=== PATIENT | male | born 1955 | race African-American/Black ===

== ENCOUNTER 2023-04-04 18:55 | Emergency (ER) | payer MEDICAID ==
[~2023-04-04] VITALS: Ht 172.7 cm; Wt 200.0 kg
[2023-04-04] MEDS ORDERED: MORPHINE SULFATE 4 MG/ML CPJ (NOT FOR IM USE) IV STA (19:33)
[2023-04-04] MEDS ORDERED: DEXAMETHASONE 10 MG/ML VIAL IV ONE (19:45)
[2023-04-04 20:33] LABS: BASOPHILS % 1.3 % (0.0-2.0); EOSINOPHILS % 13.5 % (0.0-5.0); HEMATOCRIT. 36.4 % (42.0-52.0); HEMOGLOBIN. 12.2 g/dL (14.0-18.0); LYMPHOCYTES % 28.4 % (20.0-50.0); MEAN CORPUSCULAR HEMOGLOBIN 27.3 pg (28.0-32.0); MEAN CORPUSCULAR HGB CONC 33.5 g/dL (31.0-37.0); MEAN CORPUSCULAR VOLUME 81.4 fL (80.0-94.0); MEAN PLATELET VOLUME 7.2 fl (7.4-10.4); MONOCYTES % 14.4 % (2.0-8.0); NEUTROPHILS % 42.4 % (40.0-76.0); PLATELET 352 x1000/uL (130-400); RED BLOOD CELL COUNT 4.47 mill/uL (4.7-6.1); RED CELL DISTRIBUTION WIDTH 17.6 % (11.6-14.6); WHITE BLOOD COUNT 4.1 x1000/uL (4.5-11.0)
[2023-04-04 20:37] LABS: CHLORIDE 107 mEq/L (98-107); INDEX HEMOLYSI 1 (1-3); INDEX ICTERIC 1 (1-4); INDEX LIPEMIC 1 (1-3); POTASSIUM 3.7 mEq/L (3.5-5.1); SODIUM 141 mEq/L (136-145)
[2023-04-04 20:45] LABS: ALANINE AMINOTRANSFERASE 15 IU/L (13-61); ALBUMIN 2.6 g/dL (3.4-5.0); ASPARTATE AMINOTRANSFERASE 12 IU/L (15-37); BILIRUBIN TOTAL 0.2 mg/dL (0.1-1.0); CALCIUM 8.6 mg/dL (8.5-10.1); CARBON DIOXIDE 28 mEq/L (21-32); CREATININE 0.8 mg/dL (0.6-1.3); GLUCOSE 98 mg/dL (70-105); PROTEIN TOTAL 7.6 g/dL (6.0-8.3); UREA NITROGEN BLOOD 18 mg/dL (7-21)
[2023-04-04 21:14] VITALS: O2SAT 99
[2023-04-04] MEDS ORDERED: GADOTERATE MEGLUMINE 5 MMOL/10 ML VIAL IV ONE (21:54)
[2023-04-04] MEDS ORDERED: MORPHINE SULFATE 4 MG/ML CPJ (NOT FOR IM USE) IV NR (23:45)
[2023-04-05] MEDS ORDERED: MORPHINE SULFATE 4 MG/ML CPJ (NOT FOR IM USE) IV ONE (06:45)
[2023-04-05 09:22] VITALS: TEMP 98.2
[2023-04-05] MEDS ORDERED: HYDROMORPHONE HCL/PF 2MG/ML CPJ IV ONE (10:00)
[2023-04-05] MEDS ORDERED: DEXT 5%/LACTATED RINGERS 1,000 ML IV SCH (10:15)
[2023-04-05 10:19] VITALS: BP 149/86; PULSE 94; RESP 26
[2023-04-05] MEDS ORDERED: DEXAMETHASONE 4MG/ML 1ML VIAL IV SCH (12:00)
== END 2023-04-05 12:24 | disposition left against medical advice (07) ==
LOC: ER 18:55 → SUPCPDRO 22:00 → CANBEDREQ 22:56 → ER 04-05 12:24
DX: S09.90XA Unspecified injury of head, initial encounter (principal); G83.9 Paralytic syndrome, unspecified; M06.9 Rheumatoid arthritis, unspecified; M54.2 Cervicalgia; J45.909 Unspecified asthma, uncomplicated; I10 Essential (primary) hypertension; Z86.73 Personal history of transient ischemic attack (TIA), and cerebral infarction without residual deficits; W18.39XA Other fall on same level, initial encounter; Y93.89 Activity, other specified; Y92.89 Other specified places as the place of occurrence of the external cause; Y99.8 Other external cause status
CPT/HCPCS: 80053; 85025; 86850; 86900; 86901; 36415; 70450; 72156; 96374; 96375 ×2; 99291; 93005; 96376; A9577; J1100; J2270 ×2; Z7610 ×4; J1170; L0172; A4315